=== PATIENT | male | born 1955 | race Caucasian/White ===

== ENCOUNTER 2023-08-18 07:54 | Day surgery (SDC) | payer OTHER ==
[2023-08-16 11:26] VITALS: BMI 28.5
[2023-08-18 09:37] VITALS: TEMP 97
[2023-08-18 10:04] VITALS: RESP 18
[2023-08-18 10:05] VITALS: BP 128/72; PULSE 66
== END 2023-08-18 10:32 | disposition home or self-care (01) ==
LOC: FASU-ENDO 07:54
PROVIDERS: ATTEND Internal Medicine Gastroenterology
PROC: 0DJD8ZZ Inspection of Lower Intestinal Tract, Via Natural or Artificial Opening Endoscopic (ICD-10-PCS; principal; 2023-08-18 09:16)
DX: Z12.11 Encounter for screening for malignant neoplasm of colon (principal); Z86.010 Personal history of colon polyps